=== PATIENT | female | born 1960 | race Caucasian/White ===

== ENCOUNTER 2022-06-22 02:20 | Inpatient (IN) | payer MEDICARE ==
[2022-06-22] MEDS ORDERED: Acetaminophen 650 MG Suppository PR PRN (04:20)
[2022-06-22] MEDS ORDERED: Ondansetron PF 4 MG/2 ML Vial IVP PRN (04:20)
[2022-06-22] MEDS ORDERED: Nitroglycerin 0.4 MG TAB (25 Tab Bottle) SL PRN (04:28)
[2022-06-22 04:32] VITALS: BMI 25.1
[2022-06-22] MEDS ORDERED: Benzonatate 100 MG CAP PO PRN (04:53)
[2022-06-22] MEDS ORDERED: Albuterol 200 PUFF (6.7GM INHALER) INH PRN (04:53)
[2022-06-22] MEDS ORDERED: Enoxaparin Sodium 60 MG/0.6 ML SYRINGE SC SCH (05:00)
[2022-06-22 05:36] LABS: #Basophils 0.1 thou/uL (0.0-0.2); #Eosinphils 0.1 thou/uL (0.0-0.7); #Lymphocytes 2.6 thou/uL (1.20-3.40); #Monocytes 0.7 thou/uL (0.11-0.59); #Neutrophils 1.8 thou/uL (1.40-6.50); %Eosinophils 2.6 % (0.0-10.0); %Lymphocytes 49.7 % (21.0-51.0); %Monocytes 13.5 % (0.0-10.0); %Neutrophils 33.3 % (42.0-75.0); Hemoglobin 12.9 g/dL (12.0-16.0); Mean Corpuscular HGB CONC 32.6 g/dL (32.0-36.0); Mean Corpuscular Hemoglobin 28.1 pg (27.0-31.0); Mean Corpuscular Volume 86.1 fL (78.0-98.0); Mean Platelet Volume 11.3 fL (7.4-10.4); Platelet Count 145 thou/uL (130-400); RBC Distribution Width 14.7 % (11.5-14.5); White Blood Cell (WBC) Count 5.3 thou/uL (4.8-10.8)
[2022-06-22 05:46] LABS: Anion Gap 14 mmol/L (10-20); BUN (Urea Nitrogen) 9 mg/dL (9.8-20.1); Calc. Creatinine Clearance 85 mL/min (70-130); Calcium 8.8 mg/dL (7.8-10.44); Carbon Dioxide 19 mmol/L (23-31); Chloride 110 mmol/L (98-107); Estimated GFR 97; Glucose 99 mg/dL (80-115); Sodium 140 mmol/L (136-145)
[2022-06-22] MEDS: Morphine 4 MG/ML VIAL SLOW IVP PRN ×3 (05:47→20:02)
[2022-06-22 05:51] LABS: Potassium 2.9 mmol/L (3.5-5.1)
[2022-06-22 05:52] LABS: Troponin I 0.061 ng/mL (< 0.028)
[2022-06-22] MEDS ORDERED: Electrolyte Replacement Protocol FS PRN (06:30)
[2022-06-22] MEDS ORDERED: Non-Formulary Item 1 EACH (Levothyroxine Sodium [Levothyroxine] 100 MCG Capsule) PO SCH (07:30)
[2022-06-22] MEDS ORDERED: Magnesium 2 GM/50 ML(in water) 2 GM in Premix Bag 1 BAG IVPB SCH (08:00)
[2022-06-22] MEDS: Potassium Chloride 20 MEQ TAB PO SCH ×2 (08:39→12:44)
[2022-06-22] MEDS: Zinc Sulfate 220 MG CAP PO SCH (08:40)
[2022-06-22] MEDS: Ascorbic Acid 500 mg Chewable Tablet PO SCH (08:40)
[2022-06-22] MEDS: Cholecalciferol (Vitamin D3) 400 UNITS TAB PO SCH (08:40)
[2022-06-22] MEDS: Clopidogrel Bisulfate 75 MG TAB PO SCH (08:40)
[2022-06-22] MEDS: Amlodipine 10 MG TAB PO SCH (08:40)
[2022-06-22] MEDS: Metoprolol Tartrate 100 MG TAB PO SCH (08:40)
[2022-06-22] MEDS ORDERED: Non-Formulary Item 1 EACH (Ranolazine [Ranexa] 1,000 MG Tab.Er.12h) PO SCH (09:00)
[2022-06-22 10:01] LABS: Troponin I 0.051 ng/mL (< 0.028)
[2022-06-22] MEDS: Ondansetron ODT 4 MG TAB PO PRN (10:11)
[2022-06-22] MEDS ORDERED: Famotidine 20 MG TAB PO SCH ×2 (11:21→12:15)
[2022-06-22] MEDS ORDERED: Ketorolac Tromethamine 30 MG/ML VIAL IVP SCH (12:00)
[2022-06-22] MEDS: Ketorolac Tromethamine 30 MG/ML VIAL IVP SCH ×2 (13:00→22:10)
[2022-06-22] MEDS ORDERED: Iopamidol-370 76% 500 ML 1 ML ONE (14:31)
[2022-06-22] MEDS ORDERED: Sodium Chloride 0.9% 500 ML IV SCH (17:15)
[2022-06-22] MEDS: Enoxaparin Sodium 60 MG/0.6 ML SYRINGE SC SCH (20:01)
[2022-06-22] MEDS: Sulfameth/Trimethoprim DS 800-160mg TAB PO SCH (20:01)
[2022-06-22] MEDS: Famotidine 20 MG TAB PO SCH (20:01)
[2022-06-23] MEDS: Morphine 4 MG/ML VIAL SLOW IVP PRN (00:45)
[2022-06-23 06:05] LABS: ALT (SGPT) 9 U/L (8-55); AST (SGOT) 12 U/L (5-34); Albumin 3.4 g/dL (3.4-4.8); Alkaline Phosphatase 104 U/L (40-110); Anion Gap 12 mmol/L (10-20); BUN (Urea Nitrogen) 11 mg/dL (9.8-20.1); Bilirubin, Total 0.2 mg/dL (0.2-1.2); Calc. Creatinine Clearance 82 mL/min (70-130); Calcium 8.5 mg/dL (7.8-10.44); Carbon Dioxide 19 mmol/L (23-31); Chloride 111 mmol/L (98-107); Estimated GFR 94; Globulin 2.6 g/dL (2.4-3.5); Glucose 113 mg/dL (80-115); Magnesium 2.3 mg/dL (1.6-2.6); Potassium 3.9 mmol/L (3.5-5.1); Sodium 138 mmol/L (136-145)
[2022-06-23] MEDS: Ketorolac Tromethamine 30 MG/ML VIAL IVP SCH ×4 (06:11→20:53)
[2022-06-23] MEDS: Levothyroxine Sodium 100 MCG TAB PO SCH (06:12)
[2022-06-23 06:26] LABS: #Basophils 0.1 thou/uL (0.0-0.2); #Eosinphils 0.1 thou/uL (0.0-0.7); #Lymphocytes 1.7 thou/uL (1.20-3.40); #Monocytes 0.5 thou/uL (0.11-0.59); #Neutrophils 1.4 thou/uL (1.40-6.50); %Basophils 1.7 % (0.0-1.0); %Eosinophils 3.3 % (0.0-10.0); %Lymphocytes 44.9 % (21.0-51.0); %Monocytes 12.8 % (0.0-10.0); %Neutrophils 37.4 % (42.0-75.0); Hemoglobin 11.5 g/dL (12.0-16.0); Mean Corpuscular HGB CONC 31.9 g/dL (32.0-36.0); Mean Corpuscular Hemoglobin 27.9 pg (27.0-31.0); Mean Corpuscular Volume 87.4 fL (78.0-98.0); Mean Platelet Volume 11.6 fL (7.4-10.4); Platelet Count 115 thou/uL (130-400); Platelet Morphology Comment Appears Adequate; RBC Distribution Width 14.6 % (11.5-14.5); Red Blood Cell (RBC) Count 4.11 mill/uL (4.20-5.40); White Blood Cell (WBC) Count 3.8 thou/uL (4.8-10.8)
[2022-06-23] MEDS: Enoxaparin Sodium 60 MG/0.6 ML SYRINGE SC SCH (08:38)
[2022-06-23] MEDS: Acetaminophen 325 MG TAB PO PRN ×2 (08:38→12:59)
[2022-06-23] MEDS: Sulfameth/Trimethoprim DS 800-160mg TAB PO SCH ×2 (08:40→20:52)
[2022-06-23] MEDS: Zinc Sulfate 220 MG CAP PO SCH (08:42)
[2022-06-23] MEDS: Metoprolol Tartrate 100 MG TAB PO SCH (08:42)
[2022-06-23] MEDS: Amlodipine 10 MG TAB PO SCH (08:42)
[2022-06-23] MEDS: Ascorbic Acid 500 mg Chewable Tablet PO SCH (08:42)
[2022-06-23] MEDS: Clopidogrel Bisulfate 75 MG TAB PO SCH (08:42)
[2022-06-23] MEDS: Cholecalciferol (Vitamin D3) 400 UNITS TAB PO SCH (08:42)
[2022-06-23] MEDS: Famotidine 20 MG TAB PO SCH ×2 (08:43→20:53)
[2022-06-23] MEDS ORDERED: Morphine 2 MG/ML VIAL SLOW IVP SCH (13:15)
[2022-06-23] MEDS ORDERED: Methocarbamol 500 MG TAB PO PRN ×2 (14:00→15:25)
[2022-06-23] MEDS ORDERED: hydrOXYzine 25 MG TAB PO SCH (15:00)
[2022-06-23] MEDS: HYDROcodone/Acetaminophen 10/325 mg Tablet PO SCH ×2 (16:08→20:52)
[2022-06-23] MEDS ORDERED: hydrOXYzine 25 MG TAB PO PRN (18:05)
[2022-06-23] MEDS: Gabapentin 400 MG CAP PO SCH (20:52)
[2022-06-23] MEDS ORDERED: HYDROcodone/Acetaminophen 10/325 mg Tablet PO SCH (21:56)
[2022-06-23] MEDS ORDERED: HYDROcodone/Acetaminophen 10/325 mg Tablet PO PRN (21:57)
[2022-06-24 04:53] LABS: #Eosinphils 0.1 thou/uL (0.0-0.7); #Lymphocytes 1.3 thou/uL (1.20-3.40); #Monocytes 0.6 thou/uL (0.11-0.59); #Neutrophils 1.9 thou/uL (1.40-6.50); %Basophils 0.3 % (0.0-1.0); %Eosinophils 2.7 % (0.0-10.0); %Lymphocytes 34.5 % (21.0-51.0); %Monocytes 14.1 % (0.0-10.0); %Neutrophils 48.4 % (42.0-75.0); Hemoglobin 11.2 g/dL (12.0-16.0); Mean Corpuscular HGB CONC 32.7 g/dL (32.0-36.0); Mean Corpuscular Hemoglobin 28.6 pg (27.0-31.0); Mean Corpuscular Volume 87.6 fL (78.0-98.0); Mean Platelet Volume 11.2 fL (7.4-10.4); Platelet Count 120 thou/uL (130-400); RBC Distribution Width 14.6 % (11.5-14.5); Red Blood Cell (RBC) Count 3.91 mill/uL (4.20-5.40); White Blood Cell (WBC) Count 3.9 thou/uL (4.8-10.8)
[2022-06-24 05:20] LABS: ALT (SGPT) 11 U/L (8-55); AST (SGOT) 21 U/L (5-34); Albumin 3.2 g/dL (3.4-4.8); Alkaline Phosphatase 106 U/L (40-110); Anion Gap 12 mmol/L (10-20); BUN (Urea Nitrogen) 15 mg/dL (9.8-20.1); Bilirubin, Total 0.2 mg/dL (0.2-1.2); Calc. Creatinine Clearance 67 mL/min (70-130); Calcium 8.3 mg/dL (7.8-10.44); Carbon Dioxide 20 mmol/L (23-31); Chloride 110 mmol/L (98-107); Estimated GFR 74; Globulin 2.6 g/dL (2.4-3.5); Glucose 87 mg/dL (80-115); Protein, Total 5.8 g/dL (5.8-8.1); Sodium 138 mmol/L (136-145)
[2022-06-24] MEDS: Ketorolac Tromethamine 30 MG/ML VIAL IVP SCH ×3 (05:47→21:45)
[2022-06-24] MEDS: Levothyroxine Sodium 100 MCG TAB PO SCH (05:47)
[2022-06-24] MEDS: Cholecalciferol (Vitamin D3) 400 UNITS TAB PO SCH (09:48)
[2022-06-24] MEDS: Metoprolol Tartrate 100 MG TAB PO SCH (09:48)
[2022-06-24] MEDS: Sulfameth/Trimethoprim DS 800-160mg TAB PO SCH ×2 (09:48→20:25)
[2022-06-24] MEDS: Gabapentin 400 MG CAP PO SCH ×2 (09:49→20:24)
[2022-06-24] MEDS: Amlodipine 10 MG TAB PO SCH (09:49)
[2022-06-24] MEDS: Ascorbic Acid 500 mg Chewable Tablet PO SCH (09:49)
[2022-06-24] MEDS: Zinc Sulfate 220 MG CAP PO SCH (09:50)
[2022-06-24] MEDS: Clopidogrel Bisulfate 75 MG TAB PO SCH (09:50)
[2022-06-24] MEDS: Famotidine 20 MG TAB PO SCH ×2 (09:51→20:25)
[2022-06-24] MEDS ORDERED: Morphine 2 MG/ML VIAL SLOW IVP SCH (13:00)
[2022-06-24] MEDS: Senokot S 8.6-50 MG TAB PO SCH (20:25)
[2022-06-24] MEDS: Morphine 2 MG/ML VIAL SLOW IVP PRN (21:44)
[2022-06-25] MEDS: HYDROcodone/Acetaminophen 10/325 mg Tablet PO PRN (01:28)
[2022-06-25] MEDS: Ketorolac Tromethamine 30 MG/ML VIAL IVP SCH ×4 (01:28→20:32)
[2022-06-25] MEDS: Morphine 2 MG/ML VIAL SLOW IVP PRN ×4 (03:50→22:16)
[2022-06-25 05:29] LABS: #Eosinphils 0.2 thou/uL (0.0-0.7); #Lymphocytes 1.3 thou/uL (1.20-3.40); #Monocytes 0.5 thou/uL (0.11-0.59); #Neutrophils 1.9 thou/uL (1.40-6.50); %Basophils 0.8 % (0.0-1.0); %Eosinophils 4.9 % (0.0-10.0); %Lymphocytes 33.4 % (21.0-51.0); %Monocytes 11.7 % (0.0-10.0); %Neutrophils 49.3 % (42.0-75.0); Hemoglobin 11.8 g/dL (12.0-16.0); Mean Corpuscular HGB CONC 32.3 g/dL (32.0-36.0); Mean Corpuscular Hemoglobin 28.3 pg (27.0-31.0); Mean Corpuscular Volume 87.8 fL (78.0-98.0); Platelet Count 121 thou/uL (130-400); RBC Distribution Width 14.4 % (11.5-14.5); Red Blood Cell (RBC) Count 4.17 mill/uL (4.20-5.40); White Blood Cell (WBC) Count 3.9 thou/uL (4.8-10.8)
[2022-06-25] MEDS: Levothyroxine Sodium 100 MCG TAB PO SCH (06:20)
[2022-06-25] MEDS ORDERED: Magnesium 2 GM/50 ML(in water) 2 GM in Premix Bag 1 BAG IVPB SCH (08:00)
[2022-06-25] MEDS: Ascorbic Acid 500 mg Chewable Tablet PO SCH (09:49)
[2022-06-25] MEDS: Amlodipine 10 MG TAB PO SCH (09:49)
[2022-06-25] MEDS: Famotidine 20 MG TAB PO SCH ×2 (09:50→20:07)
[2022-06-25] MEDS: Cholecalciferol (Vitamin D3) 400 UNITS TAB PO SCH (09:50)
[2022-06-25] MEDS: Clopidogrel Bisulfate 75 MG TAB PO SCH (09:50)
[2022-06-25] MEDS: Gabapentin 400 MG CAP PO SCH ×2 (09:51→20:07)
[2022-06-25] MEDS: Zinc Sulfate 220 MG CAP PO SCH (09:52)
[2022-06-25] MEDS: Metoprolol Tartrate 100 MG TAB PO SCH (09:52)
[2022-06-25] MEDS: Senokot S 8.6-50 MG TAB PO SCH ×2 (09:53→20:07)
[2022-06-25] MEDS: Sulfameth/Trimethoprim DS 800-160mg TAB PO SCH ×2 (09:54→20:08)
[2022-06-25] MEDS: Methocarbamol 500 MG TAB PO PRN ×2 (09:59→20:12)
[2022-06-25] MEDS: Ondansetron ODT 4 MG TAB PO PRN (22:21)
[2022-06-26] MEDS: HYDROcodone/Acetaminophen 10/325 mg Tablet PO PRN ×3 (01:11→20:54)
[2022-06-26] MEDS: Morphine 2 MG/ML VIAL SLOW IVP PRN ×4 (04:27→22:50)
[2022-06-26] MEDS: Levothyroxine Sodium 100 MCG TAB PO SCH (04:28)
[2022-06-26] MEDS: Ketorolac Tromethamine 30 MG/ML VIAL IVP SCH ×3 (04:40→20:55)
[2022-06-26 04:49] LABS: #Eosinphils 0.2 thou/uL (0.0-0.7); #Lymphocytes 1.8 thou/uL (1.20-3.40); #Monocytes 0.7 thou/uL (0.11-0.59); #Neutrophils 2.1 thou/uL (1.40-6.50); %Basophils 0.5 % (0.0-1.0); %Eosinophils 4.1 % (0.0-10.0); %Lymphocytes 37.8 % (21.0-51.0); %Monocytes 13.7 % (0.0-10.0); %Neutrophils 43.9 % (42.0-75.0); Hemoglobin 11.5 g/dL (12.0-16.0); Mean Corpuscular HGB CONC 32.3 g/dL (32.0-36.0); Mean Corpuscular Hemoglobin 28.3 pg (27.0-31.0); Mean Corpuscular Volume 87.6 fL (78.0-98.0); Mean Platelet Volume 11.3 fL (7.4-10.4); Platelet Count 140 thou/uL (130-400); RBC Distribution Width 14.5 % (11.5-14.5); Red Blood Cell (RBC) Count 4.07 mill/uL (4.20-5.40); White Blood Cell (WBC) Count 4.8 thou/uL (4.8-10.8)
[2022-06-26 05:09] LABS: Anion Gap 14 mmol/L (10-20); BUN (Urea Nitrogen) 18 mg/dL (9.8-20.1); Calc. Creatinine Clearance 65 mL/min (70-130); Calcium 8.6 mg/dL (7.8-10.44); Carbon Dioxide 20 mmol/L (23-31); Chloride 105 mmol/L (98-107); Estimated GFR 71; Glucose 98 mg/dL (80-115); Potassium 4.5 mmol/L (3.5-5.1); Sodium 134 mmol/L (136-145)
[2022-06-26] MEDS: Ondansetron ODT 4 MG TAB PO PRN (07:40)
[2022-06-26] MEDS: Zinc Sulfate 220 MG CAP PO SCH (09:06)
[2022-06-26] MEDS: Metoprolol Tartrate 100 MG TAB PO SCH (09:06)
[2022-06-26] MEDS: Senokot S 8.6-50 MG TAB PO SCH ×2 (09:07→20:56)
[2022-06-26] MEDS: Clopidogrel Bisulfate 75 MG TAB PO SCH (09:07)
[2022-06-26] MEDS: Ascorbic Acid 500 mg Chewable Tablet PO SCH (09:07)
[2022-06-26] MEDS: Gabapentin 400 MG CAP PO SCH ×2 (09:07→20:56)
[2022-06-26] MEDS: Famotidine 20 MG TAB PO SCH ×2 (09:07→20:54)
[2022-06-26] MEDS: Amlodipine 10 MG TAB PO SCH (09:08)
[2022-06-26] MEDS: Sulfameth/Trimethoprim DS 800-160mg TAB PO SCH (09:08)
[2022-06-26] MEDS: Cholecalciferol (Vitamin D3) 400 UNITS TAB PO SCH (09:08)
[2022-06-26] MEDS: Methocarbamol 500 MG TAB PO PRN ×2 (10:32→21:00)
[2022-06-26] MEDS: Heparin 5,000 UNITS/ML VIAL SC SCH (20:57)
[2022-06-26] MEDS ORDERED: Zinc Sulfate 220 MG CAP PO SCH (21:00)
[2022-06-26] MEDS ORDERED: Ascorbic Acid 500 mg Chewable Tablet PO SCH (21:00)
[2022-06-27] MEDS: Morphine 2 MG/ML VIAL SLOW IVP PRN ×2 (03:25→07:33)
[2022-06-27 03:26] VITALS: BP 126/59; TEMP 97.6
[2022-06-27] MEDS: Levothyroxine Sodium 100 MCG TAB PO SCH (06:42)
[2022-06-27] MEDS: Ketorolac Tromethamine 30 MG/ML VIAL IVP SCH (06:42)
[2022-06-27] MEDS: HYDROcodone/Acetaminophen 10/325 mg Tablet PO PRN (06:43)
[2022-06-27] MEDS: Methocarbamol 500 MG TAB PO PRN (06:43)
[2022-06-27] MEDS: Famotidine 20 MG TAB PO SCH (08:31)
[2022-06-27] MEDS: Cholecalciferol (Vitamin D3) 400 UNITS TAB PO SCH (08:31)
[2022-06-27] MEDS: Gabapentin 400 MG CAP PO SCH (08:31)
[2022-06-27] MEDS: Heparin 5,000 UNITS/ML VIAL SC SCH (08:32)
[2022-06-27] MEDS: Clopidogrel Bisulfate 75 MG TAB PO SCH (08:32)
[2022-06-27] MEDS: Senokot S 8.6-50 MG TAB PO SCH (08:32)
[2022-06-27] MEDS: Amlodipine 10 MG TAB PO SCH (08:32)
[2022-06-27] MEDS: Metoprolol Tartrate 100 MG TAB PO SCH (08:33)
[2022-06-27] MEDS ORDERED: Multivit, Therapeutic 1 TAB PO SCH (09:00)
== END 2022-06-27 09:03 | disposition short-term general hospital (02) | DRG 299 ==
LOC: 2SW 03:37 → OBSVTOIN 06-23 15:25
PROVIDERS: ADMIT Internal Medicine; ATTEND Internal Medicine
PROC: 8E0ZXY6 Isolation (ICD-10-PCS; principal; 2022-06-23)
DX: I70.0 Atherosclerosis of aorta (principal); U07.1 COVID-19; N39.0 Urinary tract infection, site not specified; I71.2 Thoracic aortic aneurysm, without rupture; I10 Essential (primary) hypertension; I25.10 Atherosclerotic heart disease of native coronary artery without angina pectoris; E03.9 Hypothyroidism, unspecified; B96.20 Unspecified Escherichia coli [E. coli] as the cause of diseases classified elsewhere; E83.42 Hypomagnesemia; G89.4 Chronic pain syndrome; F17.210 Nicotine dependence, cigarettes, uncomplicated; Z88.6 Allergy status to analgesic agent; Z95.5 Presence of coronary angioplasty implant and graft; Z95.1 Presence of aortocoronary bypass graft; Z95.828 Presence of other vascular implants and grafts; Z88.8 Allergy status to other drugs, medicaments and biological substances; Z79.899 Other long term (current) drug therapy; Z79.890 Hormone replacement therapy; Z98.890 Other specified postprocedural states
CPT/HCPCS: 36415; 36416; 71045; 71275; 80048; 80053; 83735; 84484; 85025; 86140; 93005; 93010; 94760; J1644; J1650; J1885; J2270; J2405; J3475; J7030; Q0162; Q9967